=== PATIENT | female | born 2000 | race Caucasian/White ===

== ENCOUNTER 2023-06-21 15:58 | Emergency (ER) | payer MEDICAID ==
[~2023-06-21] VITALS: Ht 152.4 cm; Wt 61.2 kg
[2023-06-21 16:31] VITALS: BP 118/76; PULSE 122; RESP 15; TEMP 97.7; O2SAT 97
[2023-06-21] MEDS ORDERED: NACL 0.9% 1,000 ML IV ONE (16:55)
[2023-06-21] MEDS ORDERED: KETOROLAC 30 MG/ML VIAL IVP ONE (16:55)
[2023-06-21] MEDS ORDERED: FAMOTIDINE 20 MG/2 ML VIAL IVP ONE (16:55)
[2023-06-21] MEDS ORDERED: ONDANSETRON 4 MG/2 ML VIAL IVP ONE (16:55)
[2023-06-21 17:14] LABS: BASOPHILS % (AUTO) 0.1 % (0.0-2.0); EOSINOPHILS % (AUTO) 0.2 % (0.0-4.0); HEMATOCRIT 48.6 % (36-48); HEMOGLOBIN 16.4 g/dL (12.0-16.0); LYMPHOCYTES # (AUTO) 0.5 K/uL (2.5-16.5); LYMPHOCYTES % (AUTO) 4.3 % (20.5-51.1); MEAN CORPUSCULAR HEMOGLOBIN 31 pg (27-31); MEAN CORPUSCULAR HGB CONC 34 g/dL (33-37); MEAN CORPUSCULAR VOLUME 92.9 fL (80-94); MONOCYTES # (AUTO) 0.3 K/uL (0.8-1.0); MONOCYTES % (AUTO) 2.5 % (1.7-9.3); NEUTROPHILS # (AUTO) 9.7 K/uL (1.8-7.7); NEUTROPHILS % (AUTO) 92.9 % (42.2-75.2); RED BLOOD CELL COUNT(AUTO) 5.23 MIL/uL (4.20-5.40); RED CELL DISTRIBUTION WIDTH 12.3 % (11.6-13.7); WHITE BLOOD COUNT (AUTO) 10.4 K/uL (4.8-10.8)
[2023-06-21 17:21] LABS: PLATELET COUNT (AUTO) 241 K/uL (140-450)
[2023-06-21 17:24] LABS: ALBUMIN 4.3 g/dL (3.4-5.0); ANION GAP 16.7 (8-16); CALCIUM 8.7 mg/dL (8.5-10.1); CARBON DIOXIDE 24.5 mmol/L (21-32); CREATININE 0.7 mg/dL (0.6-1.3); POTASSIUM 4.2 mmol/L (3.5-5.1); TOTAL BILIRUBIN 0.8 mg/dL (0.0-1.0); TOTAL PROTEIN, SERUM 8.6 g/dL (6.4-8.2)
[2023-06-21 17:33] LABS: APPEARANCE,URINE CLEAR (CLEAR); BILIRUBIN,URINE NEGATIVE (NEGATIVE); BLOOD, URINE TRACE-I (NEGATIVE); COLOR,URINE YELLOW (YELLOW); LEUKOCYTE ESTERASE ,URINE NEGATIVE (NEGATIVE); NITRITE, URINE NEGATIVE (NEGATIVE); PROTEIN,URINE NEGATIVE (NEGATIVE); UGLUCOSE NEGATIVE (NEGATIVE); UROBILINOGEN,URINE 0.2 EU/dL (0.2 - 1)
[2023-06-21 17:39] LABS: BACTERIA,URINE 1+ /HPF (None Seen); MUCUS,URINE 2+ /LPF (None Seen); RBC,URINE 0-5 /HPF (0-5); SQUAMOUS EPITHELIAL CELL,UR 20-50 /LPF (0-3 (FEW)); TRICHOMONAS,URINE None Seen /HPF (None Seen); WBC,URINE 0-5 /HPF (0-5); YEAST,URINE None Seen /HPF (None Seen)
[2023-06-21] MEDS ORDERED: BISM262C52 PO (18:31)
[2023-06-21] MEDS ORDERED: ONDA-188 PO (18:31)
[2023-06-21] MEDS ORDERED: CIPR500T4 PO (18:31)
[2023-06-21] MEDS ORDERED: LOPE1TAB14 PO (18:31)
[2023-06-21 19:00] VITALS: BP 134/68; PULSE 102; RESP 20; TEMP 98.2; O2SAT 98
== END 2023-06-21 18:59 | disposition home or self-care (01) ==
LOC: MED 15:58
DX: K52.9 Noninfective gastroenteritis and colitis, unspecified (principal); A05.9 Bacterial foodborne intoxication, unspecified; E86.0 Dehydration; R11.2 Nausea with vomiting, unspecified; Z79.899 Other long term (current) drug therapy
CPT/HCPCS: 36415; 80053; 81001; 81025; 83690; 85025; 96361; 96374; 96375; 99284; J1885; J2405; J3490; J7030